=== PATIENT | female | born 2005 | race Caucasian/White ===

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

== ENCOUNTER 2025-03-09 08:57 | Emergency (ER) | payer OTHER, SELFPAY ==
--- NOTE | 2025-03-09 09:02 | ED.GENADULT ---
HPI - General Adult General Chief complaint: Abdominal Pain Stated complaint: pain in abdomen/back Time Seen by Provider: 03/09/25 09:02 Source: patient, RN notes reviewed and old records reviewed Mode of arrival: ambulatory Limitations: no limitations History of Present Illness HPI narrative: 19-year-old female presents to the [facility] with right upper quadrant, epigastric pain radiating into the right scapular area. States it has been increasing over the last couple of weeks, unsure the exact time frame. Worse with the eating. Has vomited. Denies fevers Onset (ago): week(s) Treatments prior to arrival: none Related Data Home Medications ?Medication ?Instructions ?Recorded ?Confirmed ?Last Taken ?Type No Home Medications 03/09/25 03/09/25 Unknown History Allergies Allergy/AdvReac Type Severity Reaction Status Date / Time cefdinir Allergy Unknown RASH Verified 03/09/25 09:08 Review of Systems Review of Systems: All systems reviewed & are unremarkable except as noted in HPI and below Constitutional: Constitutional: Reports no additional constitutional complaints Cardiovascular: Cardiovascular: Reports no additional cardiovascular complaints, Denies chest pain and Denies dyspnea Respiratory: Respiratory: Reports no additional respiratory complaints, Denies chest congestion, Denies cough and Denies dyspnea Gastrointestinal: Gastrointestinal: Reports as per HPI, Reports abdominal pain (Epigastric, right upper quadrant), Reports nausea and Reports vomiting Genitourinary: Genitourinary: Reports no additional female genitourinary complaints Musculoskeletal: Musculoskeletal: Reports no additional musculoskeletal complaints Integumentary/Breasts: Skin/Breast: Reports system reviewed and no additional complaints, except as docu PMFSH Comments At the time of my signature, I reviewed and agree with the nursing past medical, surgical, social, and family history. There is no relevant family history pertinent to the patient complaint. Exam Const: General: cooperative, healthy appearing, comfortable, no acute distress, well developed, alert and well nourished Nutritional Appearance: well nourished Orientation/consciousness: patient oriented x3 Limitations: no limitations HENMT: Head: normal to inspection Eyes: General: appearance normal, both eyes and all related structures Alignment and Position: alignment normal Neck: Neck: normal visual inspection, full ROM, no lymphadenopathy and no meningeal signs Chest: Chest palpation & inspection: normal inspection of the chest Resp: Effort & Inspection: normal respiratory effort and able to speak in complete sentences Cardio: Rate: regular rate GI: Inspection: non-distended and no obesity GI Palp: Yes abdominal tenderness and Yes Tenderness to palpation present (GI) (RUQ, epigastric) Auscultation: normal bowel sounds : General: Yes no CVA tenderness Skin: General skin exam: normal color and no rashes or lesions noted Neuro: General: patient oriented x3, gait normal, moves all extremities and no meningeal signs Cognition (Neuro): normal cognition Speech: normal speech Gait exam (Neuro): Normal gait present Extrem: General: normal to inspection, full ROM, capillary refill normal and normal gait Psych: Appearance: grossly normal and well kempt Mental Status: mental status grossly normal Speech and movement: Normal speech and movement present and Clear speech present Affect: normal affect Attitude: cooperative Course Course Level of Care: Express Care Visit Vital Signs Vital signs: Vital Signs Temperature 97.8 F 03/09/25 09:04 Pulse Rate 60 03/09/25 09:04 Respiratory Rate 20 03/09/25 09:04 Blood Pressure 115/63 03/09/25 09:04 Pulse Oximetry 99 03/09/25 09:04 Oxygen Delivery Room Air 03/09/25 09:04 Temperature 97.8 F 03/09/25 09:04 Pulse Rate 60 03/09/25 09:04 Respiratory Rate 20 03/09/25 09:04 Blood Pressure 115/63 03/09/25 09:04 Pulse Oximetry 99 03/09/25 09:04 Oxygen Delivery Room Air 03/09/25 09:04 Reviewed Transfer Transfered to: [place] (Per patient request) Transportation: Other (POV, declined EMS) Transfer rationale: Patient with worsening over the last couple of weeks of right upper quadrant, at the gastric pain, reports vomiting and nausea. Accepting physician: Spoke with Dr. Vince Acosta Medical Decision Making MDM Narrative Medical decision making narrative: Patient sitting in exam room. Patient is nontoxic, vitals are stable. Patient presents with increasing right upper quadrant pain radiating into the right scapular area. Reports nausea, vomiting. Transfer instructions reviewed with patient to go directly to the ER. Do not eat or drink EMS was offered, patient declined All questions have been answered, and the patient deny any further questions. Some parts of this dictation were generated by voice recognition software and may contain typographical and/or grammatical inaccuracies. Differential Diagnosis Differential Diagnosis: Cholecystitis, cholelithiasis, gastroenteritis, GERD, gastric ulcer Medical Records Medical records reviewed: Yes I reviewed the external patient's medical records. Vital Signs Vital Signs: Vital Signs Temperature 97.8 F 03/09/25 09:04 Pulse Rate 60 03/09/25 09:04 Respiratory Rate 20 03/09/25 09:04 Blood Pressure 115/63 03/09/25 09:04 Pulse Oximetry 99 03/09/25 09:04 Oxygen Delivery Room Air 03/09/25 09:04 Temperature 97.8 F 03/09/25 09:04 Pulse Rate 60 03/09/25 09:04 Respiratory Rate 20 03/09/25 09:04 Blood Pressure 115/63 03/09/25 09:04 Pulse Oximetry 99 03/09/25 09:04 Oxygen Delivery Room Air 03/09/25 09:04 Reviewed Lab Data Lab results reviewed: Yes I reviewed the patient's lab results. Labs: Reviewed Critical Care Time Critical Care Time Critical Care Time: No Discharge Plan Discharge Clinical Impression: Right upper quadrant abdominal pain, Epigastric abdominal pain Patient Disposition: Acute Care Hospital Condition: Stable Patient Language: Colombian Prescriptions: No Action No Home Medications Follow-up/Referrals: PHYSICIAN,BAND SPLICER [Primary Care Provider, Internal Medicine]
[2025-03-09 09:04] VITALS: BP 115/63; PULSE 60; RESP 20; TEMP 36.6; O2SAT 99
== END 2025-03-09 09:15 | disposition short-term general hospital (02) ==
PROVIDERS: Emergency Provider Nurse Practitioner
DX: R10.11 Right upper quadrant pain (principal); R10.13 Epigastric pain
CPT/HCPCS: 99212; G0463

== ENCOUNTER 2025-03-09 09:26 | Emergency (ER) | payer OTHER, SELFPAY ==
--- NOTE | ~2025-03-09 | US_ITS ---
EXAMINATION: US right upper quadrant DATE: 03/09/2025 10:57 INDICATION: Right upper quadrant abdominal pain TECHNIQUE: Multiple grayscale and Doppler ultrasound images of the abdomen were obtained. COMPARISON: None FINDINGS: The pancreatic head and body are normal in appearance. The pancreatic tail is not visualized. Liver has normal echogenicity and contour, with a smooth surface. No liver lesion identified. No intrahepatic biliary duct dilation suspected. Portal venous flow was seen in the hepatopetal, normal direction and has normal Doppler waveform. There is a nonmobile 1 cm echogenic and shadowing gallstone at the neck of gallbladder. Additional images small amount of dependently layering hypoechoic sludge in the otherwise normal appearing gallbladder which is without abnormal wall thickening or pericholecystic fluid. The common bile duct measures 3 mm, which is normal. Sonographic Robles sign was reported as positive by the mud mixer. IMPRESSION: 1. Gallbladder sludge and a 1 cm nonmobile gallstone at the neck of the otherwise normal-appearing gallbladder. Although the gallbladder is not frankly dilated and there is no abnormal wall thickening, there is a positive sonographic Robles's sign raising suspicion for early acute cholecystitis. Could consider HIDA scan for further evaluation as clinically indicated. Reviewed, dictated and finalized at location A. IMPRESSION: 1. Gallbladder sludge and a 1 cm nonmobile gallstone at the neck of the otherwi se normal-appearing gallbladder. Although the gallbladder is not frankly dilate d and there is no abnormal wall thickening, there is a positive sonographic Mur phy's sign raising suspicion for early acute cholecystitis. Could consider HIDA scan for further evaluation as clinically indicated.
--- OUTSIDE RECORDS SUMMARY | 2025-03-09 09:29 | XMS_ITS | Encounter Summary ---
Author Organization [facility] Health [facility] [address] [place] [address] Care Team Providers Care Billboard Poster Helper Name Role Phone Miryam Agustin MD Primary Care Provider [phone] Encounter Details Date Type Department Care Team (Late st Contact Info) Description 12/05/2014 [facility] Outpatient Visit CG DEFAULT [address] [place] [address] Miryam Agustin MD [address] [address] Social History Tobacco Use Types Packs/Day Years Used Date Smoking Tobacco: Never Assessed Comments Unknown Sex and Gender Information Value Date Recorded Sex Assigned at Female 07/29/2020 10:38 AM WEBMASTER Legal Sex Female 12:41 PM WEBMASTER Gender Identity Female 07/29/2020 10:38 AM WEBMASTER Sexual Orientation Something else 07/29/2020 10 :38 AM WEBMASTER documented as of this encounter Plan of Treatment Not on file documented as of this encounter Visit Diagnoses Not on filedocumented in this encounter Care Teams Billboard Poster Helper Relationship Specialty Start Date End Date Miryam Agustin MD PCP - General Pediatrics 06/08/11 documented as of this encounter
--- OUTSIDE RECORDS SUMMARY | 2025-03-09 09:29 | XMS_ITS | Clinical Summary ---
Author Organization [facility] Address [facility] [facility] [place] [place] [address] Care Team Providers Care Assistant Sales Center Manager Name Role Phone Miryam Agustin MD Primary Care Provider [phone] Source Comments [facility],non-owned Affiliates and Associated Physician Practices is amultiple site organization consisting of ambulatory clinics and hospital sitesin [place], [place], [place] and [place]. This disclosure is being madepursuant to the Care Everywhere program and may not contain all information available regarding this patient. Last updated 18.[facility] Allergies Active Allergy Reactions Criticality Noted Date Comments Fructose GI Discomfort 02/25/2017 Omnicef 05/20/2010 Whole body turns purple Medications * Be aware that medications may not be up to date on this document. Alwaysverify current medications with the patient. albuterol HFA (PROVENTIL;VENT LENNY;PROAIR) 108 (90 Base) MCG/ACT inhaler INHALE 2 PUFFS BY MOUTH EVERY 6 HOURS NEEDED 8.5 g 01/09/2019 Active sertraline (ZOLOFT) 100 MG tablet Take 200 mg by mouth once daily Takes 2 at bedtime 01/14/2020 Active busPIRone (BUSPAR) 15 MG tablet Take 2 tablets by mouth 2 times daily Taking 30 mg BID 04/01/2020 Active topiramate (TOPAMAX) 25 MG tablet Take 25 mg by mouth 2 times daily 07/24/2020 Active benztropine (COGENTIN) 0.5 MG tablet Take 0.5 mg by mouth 2 times daily .5 mg in the morning and 1 mg in the evening 07/26/2020 Active mirtazapine (REMERON) 15 MG tablet Take 15 mg by mouth at bedtime Active norethindrone-e thinyl estradiol (AUROVELA 08/07) 1-20 MG-MCG tablet Take 1 tablet by mouth once daily Active Active Problems Problem Noted Date Diagnosed Date High triglycerides 201802/19/2020 Arthralgia 06/12/2019 DANIEL positive 06/12/2019 Muscle pain 06/12/2019 SI (sacroiliac) pain 06/12/2019 Concussion with no loss of consciousness 019 Depression with anxiety 06/23/2018 BMI (body mass index), pediatric, 95-99% for age 0803/07/2015 Resolved Problems Problem Noted Date Diagnosed Date Resolved Date Constipation 07/26/2012 03/07/2015 Overview (04/18/2015): Immunizations Immunization Administration Dates Next Due DTaP VACCINE IM (6wk-6yrs) 02/20/2010,,05/05/2006,03/09,01/07/2006 HEP A PEDS 2 DOSE 11/07/2007,10/27/2006 HEP B VACCINE, PED/ADOL 02/19/2020,03/09,01/07/2006,10/23 HIB-PRP-T 4 DOSE 02/08/2007, 6,03/09/2006,01/07 Human Papilloma Virus Nineva lent Vaccine 10/03/2019,04/04/2019 MENINGOCOCCAL ACWY (MCV4P) VAC IM 12/17/2016 MMR 02/20/2010,10/27/2006 PNEUMOCOCCAL PCV7 CONJ, PEDS 10/27/2006, 05/05/2006,03/09/2006,01/07 POLIO IPV 02/20/2010, 7,03/09/2006,01/07 Pneumococcal Pcv13 Conj 02/20/2010 TDAP (7yrs+) 12/17/2016 VARICELLA 02/20/2010,10/27/2006 Family History Medical History Relation Name Comments Anxiety Disorder Mother Alicia Cancer Mother Alicia cervical Depression Mother Alicia Migraine Mother Alicia Rashes/Skin Problems Mother Alicia Thyroid Disease Mother Alicia hypo Relation Name Status Comments Mother Alicia Social History Tobacco Use Types Packs/Day Years Used Date Smoking Tobacco: Passive Smo ke Exposure - Never Smoker Smokeless Tobacco: Never Comments No Sex and Gender Information Value Date Recorded Sex Assigned at Female 07/29/2020 10:38 AM UPSTREAM BIOMANUFACTURING TECHNICIAN Legal Sex Female 12:41 PM UPSTREAM BIOMANUFACTURING TECHNICIAN Gender Identity Female 07/29/2020 10:38 AM UPSTREAM BIOMANUFACTURING TECHNICIAN Sexual Orientation Something else 07/29/2020 10 :38 AM UPSTREAM BIOMANUFACTURING TECHNICIAN Last Filed Vital Signs Vital Sign Reading Time Taken Comments Blood Pressure 128/77 02/19/2020 12:58 PM CDT Pulse 92 02/19/2020 12:58 PM CDT Temperature 36.7 C (98.1 F) 09/18/2021 2:42 PM UPSTREAM BIOMANUFACTURING TECHNICIAN Respiratory Rate 16 08/25/2019 2:11 PM UPSTREAM BIOMANUFACTURING TECHNICIAN Oxygen Saturation 98% 06/09/2019 12:39 PM UPSTREAM BIOMANUFACTURING TECHNICIAN room air Inhaled Oxygen Concentration - - Weight 104.8 kg (231 lb) 09/18/2021 2:42 PM UPSTREAM BIOMANUFACTURING TECHNICIAN Height 161.3 cm (5' 3.5) 09/18/2021 2:42 PM UPSTREAM BIOMANUFACTURING TECHNICIAN Body Mass Index 40.28 09/18/2021 2:42 PM UPSTREAM BIOMANUFACTURING TECHNICIAN Body Mass Index Percentile 99.62% 09/18/2021 2:4 2 PM UPSTREAM BIOMANUFACTURING TECHNICIAN Growth Chart: CDC (Girls, 2- 20 Years) Plan of Treatment Health Maintenance Due Date Last Done Comments HIV SCREENING 2020 CHLAMYDIA/GONORRHEA SCREENING 2021 MENINGOCOCCAL (Group B) VACCINE SHARED DECISION-MAKING (1 of 2 - Standard) 2021 HEPATITIS C SCREENING 10/19/2023 COVID-19 VACCINE ( - season) 2024 DEPRESSION SCREENING 07/19/2024 02/19/2020, 02/19/20 20 INFLUENZA VACCINE (#1) 2025 DTAP/TDAP/TD VACCINES (7 - Td or Tdap) 12/17/2026 12/17/2016, 02/20/2010, 04/26/2007, Additional history exists ZOSTER VACCINE (1 of 2) 10/24/2055 HIB VACCINE Completed 02/08/2007, 04/18, 03/09/2006, Additional history exists PNEUMOCOCCAL VACCINE Completed 02/20/2010, 10/27/2006, 05/05/2006, Additional history exists MENINGOCOCCAL GROUPS A/C/Y/W VACCINE Aged Out 12/17/2016 No longer eligible based on patient's age to complete this topic HPV VACCINE Discontinued 10/03/2019, 04/04/2019 HEPATITIS B VACCINE Completed 02/19/2020, 03/09/2006, 01/07/2006, Additional history exists Goals Goal Patient Goal Type Associated Problems Recent Progress Patient-Stated? Author Reduce calorie intake Diet No Miryam Agustin MD Note: Caring for Your Overweight Child Eating a healthy diet: Think of the food your child eats in terms of GO, SLOW, and WHOA foods. They can enjoy GO foods almost any time they like. Limit SLOW foods to certain occasions, no more than a few times per week. And enjoy WHOA foods only on special occasions, and then eat only a small portion. GO foods include low-fat, low-calorie foods that are also low in added sugar. They tend to be rich in nutrients, such as vitamins, minerals, and other healthy substances. Fresh fruits and vegetables are great examples of GO foods. That said, fried vegetables and fruits canned in syrup, despite their vital ingredients, fall into the category of WHOA foods. Be sure to stock up on GO foods so that you can offer a variety of foods to keep things interesting. SLOW foods tend to be higher in fat and added sugar than GO foods are. Examples include fruit juices, baked goods made with white, refined flour; and poultry cooked with the skin still on. WHOA foods are the highest in fat and added sugar. Foods prepared with heavy creams and butter, fried foods, and fatty meats are examples of foods your child should only eat once in a while. One way to identify unhealthy eating triggers is for your child to keep a journal, in which they writes down the food they ate, where they ate it, the time of day and - extremely important - the reasons for eating. Did they devour two slices of meatball pizza after school because they were truly hungry or because they simply wanted to hang out at the pizza parlor with their friends? If they give the latter reason, perhaps next time the group can split a pizza and she could consciously choose to n urse a single slice, even if everyone else grabs two. Where can I go for more information? [place] [employer] ( ) www.aap.org, HealthyChildren.org www.healthychildren.org Website and free downloadable marlo for smartphones: http://www.[employer]/ Use safety retraint in car Lifestyle On track( 020 12:58 PM CDT) Jessica Turner RN Insurance [facility] MEDICAID - OUT OF STATE Care Teams Assistant Sales Center Manager Relationship Specialty Start Date End Date Miryam Agustin MD PCP - General Pediatrics 06/08/11
--- OUTSIDE RECORDS SUMMARY | 2025-03-09 09:29 | XMS_ITS | Encounter Summary ---
Author Organization [facility] Health Address [address] [place] [address] Care Team Providers Care Head Nurse Name Role Phone Miryam Agustin MD Primary Care Provider [phone] Encounter Details Date Type Department Care Team (Late st Contact Info) Description 01/31/2015 [facility] Outpatient Visit CG DEFAULT [address] [place] [address] Unknown, Provider Social History Tobacco Use Types Packs/Day Years Used Date Smoking Tobacco: Never Assessed Comments Unknown Sex and Gender Information Value Date Recorded Sex Assigned at Female 07/29/2020 10:38 AM DATA INTEGRATION ANALYST Legal Sex Female 12:41 PM DATA INTEGRATION ANALYST Gender Identity Female 07/29/2020 10:38 AM DATA INTEGRATION ANALYST Sexual Orientation Something else 07/29/2020 10 :38 AM DATA INTEGRATION ANALYST documented as of this encounter Plan of Treatment Not on file documented as of this encounter Visit Diagnoses Not on filedocumented in this encounter Care Teams Head Nurse Relationship Specialty Start Date End Date Miryam Agustin MD PCP - General Pediatrics 06/08/11 documented as of this encounter
[2025-03-09 09:30] VITALS: BP 148/64; PULSE 88; RESP 18; TEMP 36.8; O2SAT 100
[2025-03-09 09:37] LABS: BEDSIDEPREGUCG Negative (Negative)
[2025-03-09 09:42] LABS: Hematocrit 39.7 % (37.0-47.0); Hemoglobin 13.2 g/dL (12.0-15.0); Immature Granulocyte Percent A 0.1 % (0-0.5); Lymphocytes Absolute Auto 1.66 K/mm3 (0.9-3.2); Mean Corpuscular HGB Conc 33.2 g/dl (32-36); Mean Corpuscular Hemoglobin 30.8 pg (26-34); Mean Corpuscular Volume 92.5 fl (80-100); Nucleated Red Blood Cells Absolute Auto 0.000 K/mm3 (0.0-0.012); Nucleated Red Blood Cells Perc 0.0 % (0.0-0.2); Platelet Count Result 197 k/mm3 (150-375); Red Blood Count 4.29 M/mm3 (4.2-5.4); White Blood Count 8.4 K/mm3 (4.5-10.0)
[2025-03-09 09:43] LABS: Add Urine Microscopic? YES; Appearance Urine Cloudy (Clear); Glucose Urine UA Negative (Negative); Leukocyte Esterase Ur Negative LEU/UL (Negative); Nitrate Urine Negative (Negative); Non Pathogenic Casts 0-2; Specific Grav Ur 1.024 (1.001-1.035)
--- OUTSIDE RECORDS SUMMARY | 2025-03-09 09:53 | XMS_ITS | Encounter Summary ---
Author Organization [facility] Health Address [address] [place] [address] Care Team Providers Care Machine Joiner Cementer Name Role Phone Miryam Agustin MD Primary Care Provider [phone] Encounter Details Date Type Department Care Team (Late st Contact Info) Description 12/05/2014 [facility] Outpatient Visit CG DEFAULT [address] [place] [address] Miryam Agustin MD [address] [address] Social History Tobacco Use Types Packs/Day Years Used Date Smoking Tobacco: Never Assessed Comments Unknown Sex and Gender Information Value Date Recorded Sex Assigned at Female 07/29/2020 10:38 AM SCULPTURE CONSERVATOR Legal Sex Female 12:41 PM SCULPTURE CONSERVATOR Gender Identity Female 07/29/2020 10:38 AM SCULPTURE CONSERVATOR Sexual Orientation Something else 07/29/2020 10 :38 AM SCULPTURE CONSERVATOR documented as of this encounter Plan of Treatment Not on file documented as of this encounter Visit Diagnoses Not on filedocumented in this encounter Care Teams Machine Joiner Cementer Relationship Specialty Start Date End Date Miryam Agustin MD PCP - General Pediatrics 06/08/11 documented as of this encounter
--- OUTSIDE RECORDS SUMMARY | 2025-03-09 09:53 | XMS_ITS | Clinical Summary ---
Author Organization [facility] Address [facility] [facility] [place] [address] Care Team Providers Care Spearer Name Role Phone Miryam Agustin MD Primary Care Provider [phone] Source Comments [facility],non-owned Affiliates and Associated Physician Practices is amultiple site organization consisting of ambulatory clinics and hospital sitesin [place], [place], [place] and [place]. This disclosure is being madepursuant to the Care Everywhere program and may not contain all information available regarding this patient. Last updated 18.[facility] Allergies Active Allergy Reactions Criticality Noted Date [...] Sex Assigned at Female 07/29/2020 10:38 AM DECK SPECIALIST Legal Sex Female 12:41 PM DECK SPECIALIST Gender Identity Female 07/29/2020 10:38 AM DECK SPECIALIST Sexual Orientation Something else 07/29/2020 10 :38 AM DECK SPECIALIST Last Filed Vital Signs Vital Sign Reading Time Taken Comments Blood Pressure 128/77 02/19/2020 12:58 PM CDT Pulse 92 02/19/2020 12:58 PM CDT Temperature 36.7 C (98.1 F) 09/18/2021 2:42 PM DECK SPECIALIST Respiratory Rate 16 08/25/2019 2:11 PM DECK SPECIALIST Oxygen Saturation 98% 06/09/2019 12:39 PM DECK SPECIALIST room air Inhaled Oxygen Concentration - - Weight 104.8 kg (231 lb) 09/18/2021 2:42 PM DECK SPECIALIST Height 161.3 cm (5' 3.5) 09/18/2021 2:42 PM DECK SPECIALIST Body Mass Index 40.28 09/18/2021 2:42 PM DECK SPECIALIST Body Mass Index Percentile 99.62% 09/18/2021 2:4 2 PM DECK SPECIALIST Growth Chart: CDC (Girls, 2- 20 Years) [...] Where can I go for more information? [employer] ( ) www.aap.org, HealthyChildren.org www.healthychildren.org Website and free downloadable marlo for smartphones: http://www.[employer]/ Use safety retraint in car Lifestyle On track( 020 12:58 PM CDT) Jessica Turner RN Insurance [facility] MEDICAID - OUT OF STATE Care Teams Spearer Relationship Specialty Start Date End Date Miryam Agustin MD PCP - General Pediatrics 06/08/11
--- OUTSIDE RECORDS SUMMARY | 2025-03-09 09:53 | XMS_ITS | Encounter Summary ---
Author Organization [facility] Health Address [address] [place] [address] Care Team Providers Care Director Recreation Name Role Phone Miryam Agustin MD Primary Care Provider [phone] Encounter Details Date Type Department Care Team (Late st Contact Info) Description 01/31/2015 [facility] Outpatient Visit CG DEFAULT [address] [place] [address] Unknown, Provider Social History Tobacco Use Types Packs/Day Years Used Date Smoking Tobacco: Never Assessed Comments Unknown Sex and Gender Information Value Date Recorded Sex Assigned at Female 07/29/2020 10:38 AM BUS ESCORT Legal Sex Female 12:41 PM BUS ESCORT Gender Identity Female 07/29/2020 10:38 AM BUS ESCORT Sexual Orientation Something else 07/29/2020 10 :38 AM BUS ESCORT documented as of this encounter Plan of Treatment Not on file documented as of this encounter Visit Diagnoses Not on filedocumented in this encounter Care Teams Director Recreation Relationship Specialty Start Date End Date Miryam Agustin MD PCP - General Pediatrics 06/08/11 documented as of this encounter
[2025-03-09 09:56] LABS: Alanine Aminotransferase 19 U/L (6-35); Albumin Level 4.7 g/dL (3.7-5.6); Alkaline Phosphatase 61 U/L (45-116); Anion Gap 9 mmol/L (4-12); Aspartate Amino Transferase 27 U/L (14-36); Bilirubin,Total 0.9 mg/dL (0.2-1.3); Blood Urea Nitrogen 18 mg/dL (8-21); Calcium 9.4 mg/dL (8.9-10.7); Carbon Dioxide 23 mmol/L (22-30); Chloride 107 mmol/L (98-107); Estimated CRCL calculation 82 ml/min; Estimated Glomerular Filt Rate > 60; Glucose 97 mg/dL (65-110); Lipase 49 U/L (23-300); Potassium 4.1 mmol/L (3.4-5.0); Sodium 139 mmol/L (134-143); Total Protein 7.9 g/dL (6.3-8.6)
[2025-03-09 10:00] VITALS: BP 118/66; PULSE 70; RESP 18; O2SAT 100
--- NOTE | 2025-03-09 10:00 | ED_ITS ---
HPI - Abdominal Pain General Chief Complaint: Abdominal Pain Stated Complaint: from UC co abd pain Time Seen by Provider: 03/09/25 09:37 Source: patient Mode of arrival: ambulatory Limitations: no limitations History of Present Illness HPI narrative: This is a 19 year female that presents to the ER for right upper quadrant abdominal pain. Ongoing over the last couple of weeks. Reports associated nausea. Reports radiation to her back. Worse after eating. Reports some vomiting and diarrhea. Denies fevers. Related Data Allergies Allergy/AdvReac Type Severity Reaction Status Date / Time cefdinir Allergy Unknown RASH Verified 03/09/25 09:35 Review of Systems 2 Review of Systems: All systems reviewed & are unremarkable except as noted in HPI and below PMFSH Social History Social History (Updated 03/09/25 @ 10:06 by Lea Hair PA-C) Substance use: current Substance use type: marijuana Exam 2 Narrative: GENERAL: Well-appearing, well-nourished, and in no acute distress. HEAD: Normocephalic, atraumatic. EYES: EOMI. CHEST: Clear to auscultation. No respiratory distress. No wheezes rales or rhonchi HEART: Regular rate and rhythm. No murmur heard. Normal peripheral pulses. ABDOMEN: Soft, nondistended, normal active bowel sounds. Mild tenderness to palpation in the right upper quadrant, without guarding EXTREMITIES: Normal range of motion. No edema. SKIN: Warm, dry, no rash. NEURO: No focal deficits. Alert and oriented x3. PSYCH: Normal mood and affect Course Course Emergency Course: Patient updated on her workup. Resting comfortably Consultations Consultation #1: Spoke with Dr. Keen about patient and workup. He will be able to follow-up with the patient in clinic next week Date: 03/09/25 Vital Signs Vital signs: Vital Signs Temperature 98.3 F 03/09/25 09:30 Pulse Rate 88 03/09/25 09:30 Respiratory Rate 18 03/09/25 09:30 Blood Pressure 148/64 H 03/09/25 09:30 Pulse Oximetry 100 03/09/25 09:30 Oxygen Delivery Room Air 03/09/25 09:30 Temperature 98.3 F 03/09/25 09:30 Pulse Rate 54 L 03/09/25 11:01 Respiratory Rate 14 03/09/25 11:01 Blood Pressure 128/71 03/09/25 11:01 Pulse Oximetry 98 03/09/25 11:01 Oxygen Delivery Room Air 03/09/25 09:30 MDM - Abdominal Pain MDM Narrative Medical decision making narrative: Patient presents to the ER for right upper quadrant abdominal pain. Ongoing intermittently over the last couple of weeks CBC without leukocytosis. Metabolic panel and lipase normal. Right upper quadrant ultrasound showing gallbladder sludge and a gallstone. Otherwise normal-appearing gallbladder. Patient updated on her workup. Resting comfortably. Spoke with Dr. Keen about patient and workup. He will be able to follow-up with the patient in clinic next week. She was given warnings to return the ER Differential Diagnosis Differential diagnosis: Likely other (biliary colic, cholecystitis) Lab Data Attestation: I reviewed the patient's lab results. 03/09/25 09:37 03/09/25 09:37 Labs: Lab Results 03/09/25 03/09/25 03/09/25 Range/Units 09:33 09:35 09:37 WBC 8.4 (4.5-10.0) K/mm3 RBC 4.29 (4.2-5.4) M/mm3 Hgb 13.2 (12.0-15.0) g/dL Hct 39.7 (37.0-47.0) % MCV 92.5 (80-100) fl MCH 30.8 (26-34) pg MCHC 33.2 (32-36) g/dl RDW 11.5 (11.5-14.5) % Plt Count 197 (150-375) k/mm3 MPV 9.0 (7.4-10.4) fl Immature Gran % (Auto) 0.1 (0-0.5) % Neut % (Auto) 75.0 H (45.5-73.1) % Lymph % (Auto) 19.7 (18.3-44.2) % Appling % (Auto) 4.7 (2.6-8.5) % Eos % (Auto) 0.0 (0-4.4) % Baso % (Auto) 0.5 (0.2-1.2) % Lymph # (Auto) 1.66 (0.9-3.2) K/mm3 Appling # (Auto) 0.4 (0.1-0.6) K/mm3 Eos # (Auto) 0.0 (0-0.3) K/mm3 Baso # (Auto) 0.0 (0.0-0.1) K/mm3 Abs Immat Gran (auto) 0.01 (0.00-0.031) K/mm3 Absolute Neuts (auto) 6.3 (1.3-6.7) K/mm3 Absolute Nucleated RBC 0.000 (0.0-0.012) K/mm3 Nucleated RBC % 0.0 (0.0-0.2) % Sodium 139 (134-143) mmol/L Potassium 4.1 (3.4-5.0) mmol/L Chloride 107 (98-107) mmol/L Carbon Dioxide 23 (22-30) mmol/L Anion Gap 9 (4-12) mmol/L BUN 18 (8-21) mg/dL Creatinine 0.83 (0.7-1.0) mg/dL Estim Creat Clear Calc 82 ml/min Estimated GFR > 60 (59 - ) Glucose 97 (65-110) mg/dL Calcium 9.4 (8.9-10.7) mg/dL Total Bilirubin 0.9 (0.2-1.3) mg/dL AST 27 (14-36) U/L ALT 19 (6-35) U/L Alkaline Phosphatase 61 (45-116) U/L Total Protein 7.9 (6.3-8.6) g/dL Albumin 4.7 (3.7-5.6) g/dL Lipase 49 (23-300) U/L Urine Color Yellow (Yellow) Urine Appearance Cloudy H (Clear) Urine pH 6.0 (5.0-9.0) Ur Specific Cosmos 1.024 (1.001-1.035) Urine Protein Negative (Negative) mg/dL Urine Glucose (UA) Negative (Negative) mg/dL Urine Ketones Trace H (Negative) mg/dL Ur Blood (Man) Negative (Negative) Urine Nitrate Negative (Negative) Urine Bilirubin Negative (Negative) Urine Urobilinogen 1.0 (<2.0) mg/dL Leukocyte Esterase Rfl Negative (Negative) TALIA/UL Urine RBC 0-2 (0-2) /hpf Urine WBC 0-5 (0-3) /hpf Ur Squamous Epith Cells Occasional (Few) /hpf Urine Bacteria None seen /hpf Urine Casts 0-2 POC Urine HCG, Qual Negative (Negative) Imaging Data Radiologist's impression: ITS Impressions Upper Quadrant Ultrasound 03/09/25 11:00 IMPRESSION: 1. Gallbladder sludge and a 1 cm nonmobile gallstone at the neck of the otherwise normal-appearing gallbladder. Although the gallbladder is not frankly dilated and there is no abnormal wall thickening, there is a positive sonographic Robles's sign raising suspicion for early acute cholecystitis. Could consider HIDA scan for further evaluation as clinically indicated. Critical Care Time Critical Care Time Critical Care Time: No Discharge Plan Discharge Clinical Impression: Biliary colic Patient Disposition: Home Condition: Improved Instructions: Biliary Colic (ED), Low Fat Diet (ED) Additional Instructions: Return to the ER if you experience fever, abdominal pain with nausea and vomiting, you are unable to keep down liquids or solids, or any other symptoms that are concerning to you Remain well hydrated. Low-fat diet. Pain medication as needed Follow up with general surgery. Call to make an appointment. Dr Keen said he would be able to see you next week Patient Language: Canadian Prescriptions: New hydrocodone-acetaminophen 5-325 mg tablet 1 tablet PO Q6H PRN (Reason: pain) Qty: 20 0RF Follow-up/Referrals: Ladarius Keen MD [Physician, General Surgery] UNKNOWN,DOCTOR [Primary Care Provider]
[2025-03-09] MEDS: ONDANSETRON INJ 4 MG/2 ML VIAL IV PUSH (10:06)
[2025-03-09] MEDS: KETOROLAC 15 MG/ML VIAL (*BKC) IV PUSH (10:08)
[2025-03-09 10:31] VITALS: BP 123/65; PULSE 56; RESP 12; O2SAT 99
[2025-03-09 11:01] VITALS: BP 128/71; PULSE 54; RESP 14; O2SAT 98
[2025-03-09 12:01] VITALS: BP 108/69; PULSE 64; RESP 14; O2SAT 100
== END 2025-03-09 12:35 | disposition home or self-care (01) ==
PROVIDERS: Emergency Medicine; Emergency Provider Physician Assistant
DX: K80.20 Calculus of gallbladder without cholecystitis without obstruction (principal)
CPT/HCPCS: 36415; 76705; 80053; 81001; 81025; 83690; 85025; 96374; 96375; 99284; J1885; J2405

== ENCOUNTER 2025-04-11 14:33 | Outpatient (CLI) | payer OTHER, SELFPAY ==
--- OUTSIDE RECORDS SUMMARY | 2025-04-11 14:38 | XMS_ITS | Encounter Summary ---
Author Organization [facility] Health Address [address] [place] [address] Care Team Providers Care Lockstitch Collar Setter Name Role Phone Miryam Agustin MD Primary Care Provider [phone] Encounter Details Date Type Department Care Team (Late st Contact Info) Description 01/31/2015 [facility] Outpatient Visit CG DEFAULT [address] [place] [address] Unknown, Provider Social History Tobacco Use Types Packs/Day Years Used Date Smoking Tobacco: Never Assessed Comments Unknown Sex and Gender Information Value Date Recorded Sex Assigned at Female 07/29/2020 10:38 AM REMOTE ENCODING OPERATIONS SUPERVISOR Legal Sex Female 12:41 PM REMOTE ENCODING OPERATIONS SUPERVISOR Gender Identity Female 07/29/2020 10:38 AM REMOTE ENCODING OPERATIONS SUPERVISOR Sexual Orientation Something else 07/29/2020 10 :38 AM REMOTE ENCODING OPERATIONS SUPERVISOR documented as of this encounter Plan of Treatment Not on file documented as of this encounter Visit Diagnoses Not on filedocumented in this encounter Care Teams Lockstitch Collar Setter Relationship Specialty Start Date End Date Miryam Agustin MD PCP - General Pediatrics 06/08/11 documented as of this encounter
--- OUTSIDE RECORDS SUMMARY | 2025-04-11 14:38 | XMS_ITS | Encounter Summary ---
Author Organization [facility] Health Address [address] [place] [address] Care Team Providers Care Uranium Processing Supervisor Name Role Phone Miryam Agustin MD Primary Care Provider [phone] Encounter Details Date Type Department Care Team (Late st Contact Info) Description 12/05/2014 [facility] Outpatient Visit CG DEFAULT [address] [place] [address] Miryam Agustin MD [address] [id number] Social History Tobacco Use Types Packs/Day Years Used Date Smoking Tobacco: Never Assessed Comments Unknown Sex and Gender Information Value Date Recorded Sex Assigned at Female 07/29/2020 10:38 AM LEAD SOFTWARE DEVELOPER Legal Sex Female 12:41 PM LEAD SOFTWARE DEVELOPER Gender Identity Female 07/29/2020 10:38 AM LEAD SOFTWARE DEVELOPER Sexual Orientation Something else 07/29/2020 10 :38 AM LEAD SOFTWARE DEVELOPER documented as of this encounter Plan of Treatment Not on file documented as of this encounter Visit Diagnoses Not on filedocumented in this encounter Care Teams Uranium Processing Supervisor Relationship Specialty Start Date End Date Miryam Agustin MD PCP - General Pediatrics 06/08/11 documented as of this encounter
--- OUTSIDE RECORDS SUMMARY | 2025-04-11 14:39 | XMS_ITS | Clinical Summary ---
Author Organization [facility] Address [facility] [facility] [place] [address] Care Team Providers Care Logistics Administrator Name Role Phone Miryam Agustin MD Primary Care Provider [phone] Source Comments [facility],non-owned Affiliates and Associated Physician Practices is amultiple site organization consisting of ambulatory clinics and hospital sitesin [place], [place], [place] and [place]. This disclosure is being madepursuant to the Care Everywhere program and may not contain all information available regarding this patient. Last updated 18.[facility] Allergies Active Allergy Reactions Criticality Noted Date [...] Sex Assigned at Female 07/29/2020 10:38 AM KITCHENWHERE MAKER Legal Sex Female 12:41 PM KITCHENWHERE MAKER Gender Identity Female 07/29/2020 10:38 AM KITCHENWHERE MAKER Sexual Orientation Something else 07/29/2020 10 :38 AM KITCHENWHERE MAKER Last Filed Vital Signs Vital Sign Reading Time Taken Comments Blood Pressure 128/77 02/19/2020 12:58 PM CDT Pulse 92 02/19/2020 12:58 PM CDT Temperature 36.7 C (98.1 F) 09/18/2021 2:42 PM KITCHENWHERE MAKER Respiratory Rate 16 08/25/2019 2:11 PM KITCHENWHERE MAKER Oxygen Saturation 98% 06/09/2019 12:39 PM KITCHENWHERE MAKER room air Inhaled Oxygen Concentration - - Weight 104.8 kg (231 lb) 09/18/2021 2:42 PM KITCHENWHERE MAKER Height 161.3 cm (5' 3.5) 09/18/2021 2:42 PM KITCHENWHERE MAKER Body Mass Index 40.28 09/18/2021 2:42 PM KITCHENWHERE MAKER Body Mass Index Percentile 99.62% 09/18/2021 2:4 2 PM KITCHENWHERE MAKER Growth Chart: CDC (Girls, 2- 20 Years) Plan of Treatment Health Maintenance Due Date Last Done Comments HIV SCREENING 2020 CHLAMYDIA/GONORRHEA SCREENING 2021 MENINGOCOCCAL (Group B) VACCINE SHARED DECISION-MAKING (1 of 2 - Standard) 2021 HEPATITIS C SCREENING 10/19/2023 DEPRESSION SCREENING 07/19/2024 02/19/2020, 02/19/20 20 COVID-19 VACCINE ( season) 2025 INFLUENZA VACCINE (#1) 2025 DTAP/TDAP/TD VACCINES (7 [...] Where can I go for more information? [employer] ( ) www.aap.org, HealthyChildren.org www.healthychildren.org Website and free downloadable marlo for smartphones: http://www.Friendsignia/ Use safety retraint in car Lifestyle On track( 020 12:58 PM CDT) Jessica Turner RN Insurance [facility] MEDICAID - OUT OF STATE Care Teams Logistics Administrator Relationship Specialty Start Date End Date Miryam Agustin MD PCP - General Pediatrics 06/08/11
[2025-04-11 15:24] LABS: Hematocrit 37.8 % (37.0-47.0); Hemoglobin 12.6 g/dL (12.0-15.0); Immature Granulocyte Percent A 0.3 % (0-0.5); Lymphocytes Absolute Auto 2.36 K/mm3 (0.9-3.2); Mean Corpuscular HGB Conc 33.3 g/dl (32-36); Mean Corpuscular Hemoglobin 30.7 pg (26-34); Mean Corpuscular Volume 92.0 fl (80-100); Nucleated Red Blood Cells Absolute Auto 0.000 K/mm3 (0.0-0.012); Nucleated Red Blood Cells Perc 0.0 % (0.0-0.2); Platelet Count Result 187 k/mm3 (150-375); Red Blood Count 4.11 M/mm3 (4.2-5.4); White Blood Count 7.6 K/mm3 (4.5-10.0)
[2025-04-11 15:40] LABS: Alanine Aminotransferase 17 U/L (6-35); Albumin Level 4.3 g/dL (3.7-5.6); Alkaline Phosphatase 55 U/L (45-116); Amylase 69 U/L (30-100); Aspartate Amino Transferase 27 U/L (14-36); Bilirubin,Total 0.9 mg/dL (0.2-1.3); Lipase 77 U/L (23-300); Total Protein 7.3 g/dL (6.3-8.6)
== END 2025-04-11 14:34 | disposition home or self-care (01) ==
LOC: ANHSURGERY 14:37
PROVIDERS: Visit Provider Surgery
DX: K80.10 Calculus of gallbladder with chronic cholecystitis without obstruction (principal)
CPT/HCPCS: 36415; 80076; 82150; 83690; 85025

== ENCOUNTER 2025-04-19 01:16 | Day surgery (SDC) | payer OTHER, SELFPAY ==
--- NOTE | 2025-04-05 09:03 | SUR.PREOP ---
[facility] has started construction of its new state of the art ER which will open Spring 2026. With this, we anticipate parking may be a challenge for some our surgical patients and families. Parking spaces are limited but are available for all Surgical, obstetrics, and ER patients sharing this lot. If you arrive and find you are having a hard time finding a parking space, please note that we understand the challenges, please drive around the hospital and park near Hospital Entrance 1. When you enter this entrance, you can ask a volunteer to direct or take you back to the surgical waiting area to check in. We appreciate everyone?s understanding of these expected challenges while we build for your future. Report to the Outpatient Waiting Room, entrance under the green pavilion located off [address], at time _1000_ on date _04/19/2025_. Planned Procedure Time: _1200_.? Time changes happen often and if your time is changed the preop area will call you the afternoon before. - You and your visitor will be asked to self-screen and do not enter if you have any COVID symptoms. Please call surgeon if you need to reschedule. - A mask is optional within the hospital at this time. Patients may have clear liquids (water, carbonated beverages, clear teas, apple juice) until 3 hours (0900) prior to surgery with a maximum of 20 ounces. - No food from midnight until time of surgery and no smoking, or chewing tobacco (or any form of nicotine). No chewing gum, candy or mints. Take only the following medications with a SIP of water on the morning of surgery: _HYDROCODONE IF NEEDED_ DO NOT STOP ANY OF YOUR OTHER PRESCRIPTION MEDICATIONS PRIOR TO SURGERY EXCEPT THE FOLLOWING Hold all vitamins and supplements for 3 days per anesthesiologist. Medications to discontinue per physician _NA_ Date to take last dose_NA_ Please no make-up, nail tamazight, hairspray, perfume, deodorant, or body powder the day of surgery.? No jewelry (including any body piercings) or valuables the day of surgery, leave them at home.? Please take a shower or bath the night before, or the morning of, surgery with an antibacterial soap.? Wear comfortable, loose fitting clothing. - Jewelry must be removed prior to entering the operating room.? Rings and piercings that are not removed may be cut off. - The hospital will not accept responsibility for valuables.? - Please leave all valuables, including medications, at home the day of surgery. If you are going home after surgery, a licensed lumber driver must drive you home.? - NO public transportation without another adult if you receive anesthesia. - We recommend that an adult stay with you for 24 hours following discharge. - We also recommend that you do not drive, make important decision, drink alcoholic beverages, or take any drugs that were not prescribed by your health care provider for at least 24 hours after your discharge time.. Follow any additional instructions given to you from your surgeon. Telephone instructions given to _ANINE_and asked if any additional questions and then verbalized understanding. Patient advised to call surgeon office or pre surgery nurse liaison [phone] if any additional questions.
[2025-04-05 09:16] VITALS: BMI 23.9
[2025-04-19] VITALS (10 sets, daily range): BP systolic 103–119; BP diastolic 57–83; PULSE 50–88; RESP 14–20; TEMP 36.4–37.5; O2SAT 96–100
--- OUTSIDE RECORDS SUMMARY | 2025-04-19 01:19 | XMS_ITS | Encounter Summary ---
Author Organization [facility] Health Address [address] [place] [address] Care Team Providers Care Power Ballast Machine Operator Name Role Phone Miryam Agustin MD Primary Care Provider [phone] Encounter Details Date Type Department Care Team (Late st Contact Info) Description 01/31/2015 [facility] Outpatient Visit CG DEFAULT [address] [place] [address] Unknown, Provider Social History Tobacco Use Types Packs/Day Years Used Date Smoking Tobacco: Never Assessed Comments Unknown Sex and Gender Information Value Date Recorded Sex Assigned at Female 07/29/2020 10:38 AM SENIOR NET SOFTWARE DEVELOPER Legal Sex Female 12:41 PM SENIOR NET SOFTWARE DEVELOPER Gender Identity Female 07/29/2020 10:38 AM SENIOR NET SOFTWARE DEVELOPER Sexual Orientation Something else 07/29/2020 10 :38 AM SENIOR NET SOFTWARE DEVELOPER documented as of this encounter Plan of Treatment Not on file documented as of this encounter Visit Diagnoses Not on filedocumented in this encounter Care Teams Power Ballast Machine Operator Relationship Specialty Start Date End Date Miryam Agustin MD PCP - General Pediatrics 06/08/11 documented as of this encounter
--- OUTSIDE RECORDS SUMMARY | 2025-04-19 01:19 | XMS_ITS | Clinical Summary ---
Author Organization [facility] Address [facility] [facility] [place] [address] Care Team Providers Care Call Center Coordinator Name Role Phone Miryam Agustin MD Primary Care Provider [phone] Source Comments [facility],non-owned Affiliates and Associated Physician Practices is amultiple site organization consisting of ambulatory clinics and hospital sitesin [place], [place], [place] and [place]. This disclosure is being madepursuant to the Care Everywhere program and may not contain all information available regarding this patient. Last updated 18.[facility] Allergies Active Allergy Reactions Criticality Noted Date [...] Sex Assigned at Female 07/29/2020 10:38 AM OPTICAL MECHANIC Legal Sex Female 12:41 PM OPTICAL MECHANIC Gender Identity Female 07/29/2020 10:38 AM OPTICAL MECHANIC Sexual Orientation Something else 07/29/2020 10 :38 AM OPTICAL MECHANIC Last Filed Vital Signs Vital Sign Reading Time Taken Comments Blood Pressure 128/77 02/19/2020 12:58 PM CDT Pulse 92 02/19/2020 12:58 PM CDT Temperature 36.7 C (98.1 F) 09/18/2021 2:42 PM OPTICAL MECHANIC Respiratory Rate 16 08/25/2019 2:11 PM OPTICAL MECHANIC Oxygen Saturation 98% 06/09/2019 12:39 PM OPTICAL MECHANIC room air Inhaled Oxygen Concentration - - Weight 104.8 kg (231 lb) 09/18/2021 2:42 PM OPTICAL MECHANIC Height 161.3 cm (5' 3.5) 09/18/2021 2:42 PM OPTICAL MECHANIC Body Mass Index 40.28 09/18/2021 2:42 PM OPTICAL MECHANIC Body Mass Index Percentile 99.62% 09/18/2021 2:4 2 PM OPTICAL MECHANIC Growth Chart: CDC (Girls, 2- 20 Years) [...] Where can I go for more information? [employer] ( ) www.aap.org, HealthyChildren.org www.healthychildren.org Website and free downloadable marlo for smartphones: http://www.[employer]Melan Technologies/ Use safety retraint in car Lifestyle On track( 020 12:58 PM CDT) Jessica Turner RN Insurance [facility] MEDICAID - OUT OF STATE Care Teams Call Center Coordinator Relationship Specialty Start Date End Date Miryam Agustin MD PCP - General Pediatrics 06/08/11
--- OUTSIDE RECORDS SUMMARY | 2025-04-19 01:19 | XMS_ITS | Encounter Summary ---
Author Organization [facility] Health Address [address] [place] [address] Care Team Providers Care Mat Making Machine Tender Name Role Phone Miryam Agustin MD Primary Care Provider [phone] Encounter Details Date Type Department Care Team (Late st Contact Info) Description 12/05/2014 [facility] Outpatient Visit CG DEFAULT [address] [place] [address] Miryam Agustin MD [address] [phone] Social History Tobacco Use Types Packs/Day Years Used Date Smoking Tobacco: Never Assessed Comments Unknown Sex and Gender Information Value Date Recorded Sex Assigned at Female 07/29/2020 10:38 AM SPECIMEN TECHNICIAN Legal Sex Female 12:41 PM SPECIMEN TECHNICIAN Gender Identity Female 07/29/2020 10:38 AM SPECIMEN TECHNICIAN Sexual Orientation Something else 07/29/2020 10 :38 AM SPECIMEN TECHNICIAN documented as of this encounter Plan of Treatment Not on file documented as of this encounter Visit Diagnoses Not on filedocumented in this encounter Care Teams Mat Making Machine Tender Relationship Specialty Start Date End Date Miryam Agustin MD PCP - General Pediatrics 06/08/11 documented as of this encounter
[2025-04-19] MEDS: LACTATED RINGERS 1,000 ML 30 ML IV CONT ×2 (11:20→14:16)
[2025-04-19] MEDS: ACETAMINOPHEN 500 MG TABLET 1000 MG PO (11:20)
[2025-04-19] MEDS: KETOROLAC 15 MG/ML VIAL (*BKC) IV PUSH (11:20)
[2025-04-19] MEDS: SCOPOLAMINE 1 MG PATCH 1 PATCH TRANSDERM (11:22)
--- NOTE | 2025-04-19 12:10 | P.PNAN_ITS ---
Anes - Initial Pre Proc Eval Procedure: Operation Date: 04/19/25 12:00 Proposed Procedures p Laparoscopic Cholecystectomy - Ladarius Keen MD Date/Time: 04/19/25 12:10 Surgeon: Ladarius Keen MD Pre Op Diagnosis: chronic cholecystitis with stones Patient Data Age: 19 Gender: F Height: 1.6 m Weight: 55.1 kg Last Vital Signs Temp 37.5 C 04/19/25 11:15 Pulse 86 04/19/25 11:15 Resp 16 04/19/25 11:15 BP 115/70 04/19/25 11:15 Pulse Ox 99 04/19/25 11:15 O2 Del Method Room Air 04/19/25 11:15 Allergies Allergy/AdvReac Type Severity Reaction Status Date / Time cefdinir Allergy Unknown RASH Verified 04/19/25 11:13 Home Medications ?Medication ?Instructions ?Recorded ?Confirmed ?Type hydrocodone 5 mg-acetaminophen 325 1 tablet PO Q6H PRN pain #20 tabs 03/09/25 04/05/25 Rx mg tablet epinephrine 0.125 mg/actuation 1 puff inhalation Q6H P RN asthma 03/16/25 04/05/25 History aerosol inhaler (Primatene Mist) : patient denies HCG: negative Patient hx anesthesia problems: none Family hx anesthesia problems: none Results Review: All pre-operative results and documents have been reviewed as part of the pre- operative evaluation. [facility] Past Medical History Medical History Headache, common migraine Asthma Anxiety Allergies Family History Family History Mother Asthma Alcoholism Depression Cancer Father Alcoholism Grandparent Alcoholism Depression Hypertension Cancer Heart disease Other Non-Hodgkin lymphoma Cancer of cervix Social History Social History Smoking status: Never smoker Second hand tobacco smoke exposure: No Alcohol intake: never Substance use: current Substance use type: marijuana Other substance usage details: SMOKES DAILY Do You Feel Safe in your Home?: Yes Lack of Food: Never True Current Housing: I Have Housing Concerned About Future Housing: No Difficulty Paying Gas/Electric Bills: No Difficulty Paying for Meds: No Currently Unemployed: No Education: High School Diploma/GED Living arrangements: with family Occupation/Education: occupation Additional occupation/education comments: [employer] Gender identity (if verbalized by the patient): Female Spiritual care concerns: No Anes - Eval Final PreProcedure Day of Procedure 04/19/25 12:10 Patient weight: normal Heart: regular rate and rhythm Lungs: clear to auscultation Airway: Mallampati scale class 1 Neurological: alert and oriented Last oral intake: >/= 8 hours ASA classification: II Emergent: no Anesthetic plan: proceed Anesthesia type and monitoring: general Results Review: All pre-operative results and documents have been reviewed as part of the pre- operative evaluation. Informed Consent: The patient's anesthetic plan and its attendant risks and benefits were disc ussed with the patient/family/POA. Questions were solicited and answers provided to the satisfaction of the patient/family/POA.
--- NOTE | 2025-04-19 12:37 | WPDHPUPDATE1 ---
History and Physical Update Update Date/Time: 04/19/25 12:37 History and Physical has been reviewed, including an updated exam of the patient. There are NO changes in the patient's condition. Risks, benefits, and alternatives have been discussed and questions answered. Patient agrees to proceed with procedure.
[2025-04-19] MEDS: ceFAZolin 2 GM in SODIUM CHLORIDE 0.9% IV 50 ML 100 ML IVPB (12:40)
--- NOTE | 2025-04-19 13:07 | S_PTH ---
PATIENT: Brittany Cedeno LOC: [facility] U#:[id number] AGE/SX: 19/F ROOM: RE04/19/[address]: Ladarius Keen MD : 2005 BED: DIS: 04/19/2025 SPEC #: [id number] RECD: 04/19/25 14:25 STATUS: YONATAN REQ #: [id number] TG: 04/19/25 13:[address]: Ladarius Keen DEPT: [facility] Surgical RECD BY: Hanna Etienne MLT, ([facility]) ENTERED: 04/19/25 14:26 SP TYPE: Surgical OTHR DR: SUPERVISOR BAKERY SANITATION PHYSICIAN Tissues: A - Gallbladder Procedures: Hematoxylin and Eosin Stain Gross and Microscopic Level 3
[2025-04-19] MEDS: BUPIVACAINE/EPINEPHRINE 0.5% 30 ML VIAL INFILTRATE (13:10)
--- NOTE | 2025-04-19 14:10 | P.OP_ITS ---
Procedure Note - Detailed Date of Procedure 04/19/25 Pre-op Diagnosis chronic cholecystitis with stones Post-op Diagnosis Same Procedure Performed Laparoscopic cholecystectomy Surgeon Ladarius Keen MD Diabetologist Miryam PERAZAA Anesthesia General and Local Indications Patient has a 3 month history of postprandial right upper quadrant pain. This pain is worse with fatty foods. It is often associated with nausea and vomiting. She was in the emergency room and [place] March 09. Ultrasound was done which showed a large gallstone in the neck of the gallbladder as well as gallbladder sludge. Patient was seen in the office and felt to have chronic cholecystitis. She is taken to surgery now for laparoscopic cholecystectomy Findings Patient had acute and chronic inflammation and edema. There were numerous adhesions to the gallbladder of omentum and other tissues. The gallbladder wall was thickened. No large stones were noted. There was no biliary ductal dilatation. There were no liver abnormalities. Description of Procedure Patient was taken to surgery and induced into general anesthesia. The abdomen is prepped draped. Trocars were placed in the usual fashion using [employer] optical trocars and a 5 mm camera. Patient was placed in reverse Trendelenburg. We tried to decompress the gallbladder with a laparoscopic aspirator. Unfortunately the bile was so thick that it would not come through the aspirator. On removing the aspirator there was some yellow tinged thick mucus in the gallbladder. Fortunately there was little drainage from the cho lecystotomy. We then freed the gallbladder from many surrounding adhesions. We were slowly able to retract the gallbladder anterosuperiorly. Adhesions covered the gallbladder from the fundus to the infundibulum. We continued taking down adhesions and eventually freed the infundibulum of the gallbladder as well as the cholecystohepatic triangle such that we could dissect in this area. Dissection was carried out of a meticulous nature and the cystic duct and cystic artery were carefully dissected. We also dissected the gallbladder off the liver over its lower 3rd. Critical view was achieved. I then securely clipped and divided the cystic duct and cystic artery. The gallbladder was then dissected free of its remaining attachments to the liver. The gallbladder was placed in an Endo-Catch bag. It was retrieved from the epigastric trocar site. The epigastric trocar site had to have the skin incision enlarged and the wound dilated with a peon clamp to accommodate the gallbladder with its thickened argueta and thickened content. Once removed, we replaced the epigastric trocar and reviewed the right upper quadrant and gallbladder fossa. Irrigation and suctioning were used. There was no sign of bleeding or bile leakage. All looked good. We then evacuated CO2 and removed the trocar sleeves. The fascia at the epigastric trocar site was closed with [id number] mattress sutures of 0 Vicryl. The subcutaneous was closed with 3-0 Vicryl suture. All skin wounds were closed with subcuticular 4-0 Monocryl skin suture. The wounds were dressed with Exofin surgical adhesive. The patient was then awakened and extubated. She was taken to recovery in good condition. Sponge and needle counts were correct x2. Estimated Blood Loss -10 Drains No Packing No Pathology Yes (Gallbladder) Complications None Condition Stable Disposition PACU [facility] Billing Surgery - Charge Forward: Surgery Billing (Laparoscopic cholecystectomy)
[2025-04-19] MEDS: fentaNYL CITRATE INJ (*CRX) 100 MCG/2 ML VIAL 25 MCG IV PUSH ×2 (15:13→15:16)
[2025-04-19] MEDS: oxyCODONE HCL (*CRX) 5 MG TAB IR PO (16:08)
== END 2025-04-19 16:50 | disposition home or self-care (01) ==
PROVIDERS: Visit Provider Surgery
PROC: 0FT44ZZ Resection of Gallbladder, Percutaneous Endoscopic Approach (ICD-10-PCS; CPT 47562; principal; 2025-04-19 12:00)
DX: K80.10 Calculus of gallbladder with chronic cholecystitis without obstruction (principal); N73.6 Female pelvic peritoneal adhesions (postinfective); R59.1 Generalized enlarged lymph nodes; G89.18 Other acute postprocedural pain; J45.909 Unspecified asthma, uncomplicated; F41.9 Anxiety disorder, unspecified; F12.90 Cannabis use, unspecified, uncomplicated; Z79.891 Long term (current) use of opiate analgesic; Z79.1 Long term (current) use of non-steroidal anti-inflammatories (NSAID); Z80.7 Family history of other malignant neoplasms of lymphoid, hematopoietic and related tissues; Z80.49 Family history of malignant neoplasm of other genital organs; Z82.49 Family history of ischemic heart disease and other diseases of the circulatory system
CPT/HCPCS: 47562; 88304; J0690; A9270; J1100; J1171; J1885; J2003; J2250; J2405; J2704; J3010; J7120

== ENCOUNTER 2025-05-03 09:49 | Outpatient (CLI) | payer OTHER, SELFPAY ==
[2025-05-03 10:36] LABS: Hematocrit 35.6 % (37.0-47.0); Hemoglobin 12.2 g/dL (12.0-15.0); Immature Granulocyte Percent A 0.2 % (0-0.5); Lymphocytes Absolute Auto 1.24 K/mm3 (0.9-3.2); Mean Corpuscular HGB Conc 34.3 g/dl (32-36); Mean Corpuscular Hemoglobin 31.2 pg (26-34); Mean Corpuscular Volume 91.0 fl (80-100); Nucleated Red Blood Cells Absolute Auto 0.000 K/mm3 (0.0-0.012); Nucleated Red Blood Cells Perc 0.0 % (0.0-0.2); Platelet Count Result 183 k/mm3 (150-375); Red Blood Count 3.91 M/mm3 (4.2-5.4); White Blood Count 4.3 K/mm3 (4.5-10.0)
[2025-05-03 10:59] LABS: Alanine Aminotransferase 37 U/L (6-35); Albumin Level 4.3 g/dL (3.7-5.6); Alkaline Phosphatase 53 U/L (45-116); Anion Gap 9 mmol/L (4-12); Aspartate Amino Transferase 35 U/L (14-36); Bilirubin,Total 0.8 mg/dL (0.2-1.3); Blood Urea Nitrogen 17 mg/dL (8-21); Calcium 9.4 mg/dL (8.9-10.7); Carbon Dioxide 26 mmol/L (22-30); Chloride 105 mmol/L (98-107); Estimated Glomerular Filt Rate > 60; Glucose 88 mg/dL (65-110); Potassium 4.1 mmol/L (3.4-5.0); Sodium 140 mmol/L (134-143); Total Protein 7.6 g/dL (6.3-8.6)
--- OUTSIDE RECORDS SUMMARY | 2025-05-03 11:01 | XMS_ITS | Clinical Summary ---
Author Organization [facility] Address [address] [place] [address] Care Team Providers Care Dairy Manufacturing Technologist Name Role Phone Miryam Agustin MD Primary Care Provider [phone] Source Comments [facility],non-owned Affiliates and Associated Physician Practices is amultiple site organization consisting of ambulatory clinics and hospital sitesin [place], [place], [place] and [place]. This disclosure is being madepursuant to the Care Everywhere program and may not contain all information available regarding this patient. Last updated 18.[facility] [employer] Allergies Active Allergy Reactions Criticality Noted Date [...] History Relation Name Comments Anxiety Disorder Mother Maryuri Cancer Mother Maryuri cervical Depression Mother Maryuri Migraine Mother Maryuri Rashes/Skin Problems Mother Maryuri Thyroid Disease Mother Maryuri hypo Relation Name Status Comments Mother Maryuri Social History Tobacco Use Types Packs/Day Years Used Date Smoking Tobacco: Passive Smo ke Exposure - Never Smoker Smokeless Tobacco: Never Comments No Sex and Gender Information Value Date Recorded Sex Assigned at Female 07/29/2020 10:38 AM TEA BLENDER Legal Sex Female 12:41 PM TEA BLENDER Gender Identity Female 07/29/2020 10:38 AM TEA BLENDER Sexual Orientation Something else 07/29/2020 10 :38 AM TEA BLENDER Last Filed Vital Signs Vital Sign Reading Time Taken Comments Blood Pressure 128/77 02/19/2020 12:58 PM CDT Pulse 92 02/19/2020 12:58 PM CDT Temperature 36.7 C (98.1 F) 09/18/2021 2:42 PM TEA BLENDER Respiratory Rate 16 08/25/2019 2:11 PM TEA BLENDER Oxygen Saturation 98% 06/09/2019 12:39 PM TEA BLENDER room air Inhaled Oxygen Concentration - - Weight 104.8 kg (231 lb) 09/18/2021 2:42 PM TEA BLENDER Height 161.3 cm (5' 3.5) 09/18/2021 2:42 PM TEA BLENDER Body Mass Index 40.28 09/18/2021 2:42 PM TEA BLENDER Body Mass Index Percentile 99.62% 09/18/2021 2:4 2 PM TEA BLENDER Growth Chart: CDC (Girls, 2- 20 Years) [...] Where can I go for more information? [place] [employer] ( ) www.aap.org, HealthyChildren.org www.healthychildren.org Website and free downloadable marlo for smartphones: http://www.[employer]/ Use safety retraint in car Lifestyle On track( 020 12:58 PM CDT) No Jessica Barrera RN Insurance [facility] SELF PAY NO INSURANCE Member Subscriber Plan / Payer (Ef fective for All Dates) Name:Brittany Cedeno Member ID:Not on file Relation to Subscriber:Not on file Name:BRITTANY CEDENO Subscriber ID:Not on file (Home) Address: [facility] [place] [address] Payer ID:Not on file Group ID:Not on file Type:Self Pay Address: [place], [place] [facility] MEDICAID - OUT OF STATE Care Teams Dairy Manufacturing Technologist Relationship Specialty Start Date End Date Miryam Agustin MD PCP - General Pediatrics 06/08/11
--- OUTSIDE RECORDS SUMMARY | 2025-05-03 11:01 | XMS_ITS | Encounter Summary ---
Author Organization [facility] Health Address [address] [place] [address] Care Team Providers Care Ecology Teacher Name Role Phone Miryam Agustin MD Primary Care Provider [phone] Encounter Details Date Type Department Care Team (Late st Contact Info) Description 12/05/2014 [facility] Outpatient Visit CG DEFAULT [address] [place] [address] Miryam Agustin MD [address] [id number] Social History Tobacco Use Types Packs/Day Years Used Date Smoking Tobacco: Never Assessed Comments Unknown Sex and Gender Information Value Date Recorded Sex Assigned at Female 07/29/2020 10:38 AM FAMILY AND CONSUMER EDUCATION TEACHER Legal Sex Female 12:41 PM FAMILY AND CONSUMER EDUCATION TEACHER Gender Identity Female 07/29/2020 10:38 AM FAMILY AND CONSUMER EDUCATION TEACHER Sexual Orientation Something else 07/29/2020 10 :38 AM FAMILY AND CONSUMER EDUCATION TEACHER documented as of this encounter Plan of Treatment Not on file documented as of this encounter Visit Diagnoses Not on filedocumented in this encounter Care Teams Ecology Teacher Relationship Specialty Start Date End Date Miryam Agustin MD PCP - General Pediatrics 06/08/11 documented as of this encounter
--- OUTSIDE RECORDS SUMMARY | 2025-05-03 11:01 | XMS_ITS | Encounter Summary ---
Author Organization [facility] Address [address] [place] [address] Care Team Providers Care Medical Tech Name Role Phone Miryam Agustin MD Primary Care Provider [phone] Encounter Details Date Type Department Care Team (Late st Contact Info) Description 01/31/2015 [facility] Outpatient Visit CG DEFAULT [address] [place] [address] Unknown, Provider Social History Tobacco Use Types Packs/Day Years Used Date Smoking Tobacco: Never Assessed Comments Unknown Sex and Gender Information Value Date Recorded Sex Assigned at Female 07/29/2020 10:38 AM CORE CUTTER Legal Sex Female 12:41 PM CORE CUTTER Gender Identity Female 07/29/2020 10:38 AM CORE CUTTER Sexual Orientation Something else 07/29/2020 10 :38 AM CORE CUTTER documented as of this encounter Plan of Treatment Not on file documented as of this encounter Visit Diagnoses Not on filedocumented in this encounter Care Teams Medical Tech Relationship Specialty Start Date End Date Miyram Agustin MD PCP - General Pediatrics 06/08/11 documented as of this encounter
== END 2025-05-03 09:50 | disposition home or self-care (01) ==
LOC: ANHLAB 09:51
PROVIDERS: Visit Provider Nurse Practitioner Family
DX: R50.9 Fever, unspecified (principal)
CPT/HCPCS: 36415; 80053; 85025

== ENCOUNTER 2025-05-09 12:47 | Outpatient (CLI) | payer OTHER, SELFPAY ==
--- NOTE | ~2025-05-09 | CT_ITS ---
Exam: CT abdomen and pelvis with contrast Clinical History: [Post procedural pain ] Comparison: [ None available] Technique: Multiple axial CT images of the abdomen and pelvis were obtained with IV contrast. Sagittal and coronal reformatted images were obtained. FINDINGS: Lung bases: [Clear ] Liver: [ No mass.] [ No intrahepatic biliary duct dilatation.] Gallbladder: Surgically absent. Common bile duct: [ Normal caliber.] [ No stones.] Spleen: [ Within normal limits.] Pancreas: [ No mass. No pancreatic fluid collection.] Adrenals: [ No masses.] Kidneys: [ No masses. No hydronephrosis.][ ] Lymph nodes: [ No adenopathy in the abdomen or pelvis.] Stomach, small bowel and colon: [ No bowel wall thickening or obstruction.] Peritoneum cavity: [ No mesenteric fat stranding or fluid.] Bladder: [ Unremarkable.] Osseous structures: [ No acute fracture or destructive lesion.] [ Multilevel degenerative change in the visualized spine.] Abdominal aorta: [ No aneurysm.] Additional findings: There is a 3.6 x 1.1 x 2.8 cm locule of free intraperitoneal air in the anterior aspect of the lower mid pelvis. IMPRESSION: 1. There is a 3.6 x 1.1 x 2.8 cm locule of free intraperitoneal air in the anterior aspect of the lower mid pelvis. Correlate clinically. Attempts were made to contact the ordering provider which were unsuccessful. Continued attempts will be made to contact the patient's provider. An addendum will be p rovided once the provider is contacted. 2. Cholecystectomy. Reviewed, dictated and finalized at location Q. IMPRESSION: 1. There is a 3.6 x 1.1 x 2.8 cm locule of free intraperitoneal air in the ante rior aspect of the lower mid pelvis. Correlate clinically. Attempts were made t o contact the ordering provider which were unsuccessful. Continued attempts yusra l be made to contact the patient's provider. An addendum will be provided once the provider is contacted. 2. Cholecystectomy.
== END 2025-05-09 12:48 | disposition home or self-care (01) ==
PROVIDERS: PCP Nurse Practitioner Family; Visit Provider Nurse Practitioner Family
DX: G89.18 Other acute postprocedural pain (principal); R10.13 Epigastric pain; R19.06 Epigastric swelling, mass or lump
CPT/HCPCS: 74177; Q9967